=== PATIENT | male | born 1940 | race Caucasian/White ===

== ENCOUNTER → 2020-03-13 09:49 | Outpatient (CLI) | payer MEDICARE, OTHER, SELFPAY ==
[2020-03-14 02:01] LABS: COVID19 Sendout Not Detected (Not Detect)
== END ==
PROVIDERS: Family Provider Nurse Practitioner; Visit Provider Physician Assistant
DX: Z01.812 Encounter for preprocedural laboratory examination (principal)
CPT/HCPCS: 87635

== ENCOUNTER → 2020-04-21 09:40 | Outpatient (CLI) | payer MEDICARE, OTHER, SELFPAY ==
[2020-04-22 20:41] LABS: COVID19 Sendout Not Detected (Not Detect)
== END ==
PROVIDERS: Family Provider Nurse Practitioner; Visit Provider Physician Assistant
DX: Z11.59 Encounter for screening for other viral diseases (principal)
CPT/HCPCS: 87635

== ENCOUNTER 2020-04-24 07:20 | Day surgery (SDC) | payer MEDICARE, OTHER, SELFPAY ==
[2020-04-24 07:58] VITALS: BP 108/66; PULSE 66; RESP 18; TEMP 36.6; O2SAT 96; BMI 30.1
[2020-04-24] MEDS: CATARACT EYE COMPOUND (10 DROPS/SYRINGE) 3 DROPS EYE-OP (08:08)
[2020-04-24] MEDS: PROPARACAINE 0.5% OPHTH SOL 2 DROPS EYE-OP (08:08)
--- NOTE | 2020-04-24 09:05 | PM.PREOP ---
Pre-operative Note Interval Note History & Physical reviewed/Exam performed by Physician: Yes Changes to H&P: No
--- NOTE | 2020-04-24 09:05 | PM.OP.1 ---
Operative Date/Time/Diagnoses Pre-op diagnosis: Nuclear cataract right eye Procedure & Clinicians Procedure: Cataract Surgery Same procedure as scheduled: Yes Surgeon: Jesus Wilkinson Anesthesia Type: MAC +/- and Sedation Operative Notes Procedure in detail: Patient brought to the operating suite. Tetracaine drops placed in the right eye. Patient was prepped and draped in sterile manner. Wire lid speculum was placed in the eye. Betadine drops were placed on the eye. This was irrigated. Lidocaine jelly was placed on the eye. A paracentesis port was created with a side-port blade. 0.1 mL 1% preservative free lidocaine was injected into the anterior chamber. The anterior chamber was deepened with viscoelastic. 2.6 mm keratome was used to create a temporal clear corneal incision. Cystotome and Utrata forceps were used to create continuous tear capsulorrhexis. Balanced salt solution was used to hydro dissect the nucleus. The phacoemulsification handpiece was inserted and the nucleus was removed using the stop and chop technique. The irrigation aspiration handpiece was inserted and the remaining cortex was removed. Anterior chamber was deepened with viscoelastic. An Aivla ZCB00 intraocular lens with a power of 22.5 was injected into the capsular bag. Irrigation aspiration handpiece was inserted and the remaining viscoelastic was removed. Incision was hydrated with balanced salt solution and found to be leak free with pressure with Weck-Bouchra sponges. 0.1 mL Vigamox injected anterior chamber. 0.3 mL Kenalog 10 mg was injected subconjunctivally. Lid speculum was removed. The patient left the operating room in excellent condition. Complications: none Post-operative Condition: stable Disposition: same day surgery
--- NOTE | 2020-04-24 09:25 | SUR.OPER ---
Supine on eye stretcher, head on extension cradle secured with tape. Arms tucked at sides with blanket. Pillow under knees.
[2020-04-24] MEDS: CHONDROIDTIN/SOD HYALURONATE 1.05 ML SYRINGE INTRAOCULA (09:29)
[2020-04-24] MEDS: LIDOCAINE JELLY 2% 5 ML 1 APPLIC TOP (09:30)
[2020-04-24] MEDS: TRIAMCINOLONE 50 MG/5 ML VIAL INJ (09:31)
[2020-04-24] MEDS: PHENYLEPHRINE/LIDOCAINE VIAL (OR) 0.2 ML EYE-OP (09:31)
[2020-04-24] MEDS: TETRACAINE 0.5% OPHTH DROPS 4 ML 2 DROPS EYE-OP (09:31)
[2020-04-24] MEDS: MOXIFLOXACIN INJ 5 MG/ML VIAL EYE-OP (09:31)
[2020-04-24] MEDS: BALANCED SALT IRRIG SOLN NO.2 500 ML, EPINEPHrine 1 MG IRR (09:32)
[2020-04-24 09:39] VITALS: BP 110/66; PULSE 62; RESP 16; TEMP 36.6; O2SAT 99
== END 2020-04-24 10:03 | disposition home or self-care (01) ==
PROVIDERS: Family Provider Nurse Practitioner; PCP Student in an Organized Health Care Education/Training Program; Referring Provider Student in an Organized Health Care Education/Training Program; Visit Provider Ophthalmology
PROC: (CPT 66984; principal; 2020-04-24 09:15)
DX: H25.11 Age-related nuclear cataract, right eye (principal); E11.9 Type 2 diabetes mellitus without complications; D64.9 Anemia, unspecified; Z86.73 Personal history of transient ischemic attack (TIA), and cerebral infarction without residual deficits; Z79.84 Long term (current) use of oral hypoglycemic drugs; I10 Essential (primary) hypertension
CPT/HCPCS: 66984; J0171; J2250; J3301

== ENCOUNTER → 2020-05-05 10:48 | Outpatient (CLI) | payer MEDICARE, OTHER, SELFPAY ==
[2020-05-06 09:13] LABS: COVID19 Sendout Not Detected (Not Detect)
== END ==
PROVIDERS: Family Provider Nurse Practitioner; PCP Student in an Organized Health Care Education/Training Program; Visit Provider Physician Assistant
DX: Z11.59 Encounter for screening for other viral diseases (principal)
CPT/HCPCS: 87635

== ENCOUNTER 2020-05-08 07:12 | Day surgery (SDC) | payer MEDICARE, OTHER, SELFPAY ==
[2020-05-08] MEDS: PROPARACAINE 0.5% OPHTH SOL 2 DROPS EYE-OP (08:03)
[2020-05-08] MEDS: CATARACT EYE COMPOUND (10 DROPS/SYRINGE) 3 DROPS EYE-OP (08:12)
[2020-05-08 08:16] VITALS: BP 128/72; PULSE 71; RESP 18; TEMP 36.1; O2SAT 98; BMI 31.5
--- NOTE | 2020-05-08 08:57 | P.OP_ITS ---
Operative Date/Time/Diagnoses Pre-op diagnosis: Nuclear Cataract Left eye Post-op diagnosis: same Procedure & Clinicians Same procedure as scheduled: Yes Surgeon: Jesus Wilkinson Anesthesia Type: MAC +/- and Sedation Operative Notes Procedure in detail: Patient brought to the operating suite. Tetracaine drops placed in the left eye. Patient was prepped and draped in sterile manner. Wire lid speculum was placed in the eye. Betadine drops were placed on the eye. This was irrigated. Lidocaine jelly was placed on the eye. A paracentesis port was created with a side-port blade. 0.1 mL 1% preservative free lidocaine was injected into the anterior chamber. The anterior chamber was deepened with viscoelastic. 2.6 mm keratome was used to create a temporal clear corneal incision. Cystotome and Utrata forceps were used to create continuous tear capsulorrhexis. Balanced salt solution was used to hydro dissect the nucleus. The phacoemulsification handpiece was inserted and the nucleus was removed using the stop and chop technique. The irrigation aspiration handpiece was inserted and the remaining cortex was removed. Anterior chamber was deepened with viscoe lastic. An Avila ZCB00 intraocular lens with a power of 22.5 was injected into the capsular bag. Irrigation aspiration handpiece was inserted and the remaining viscoelastic was removed. Incision was hydrated with balanced salt solution and found to be leak free with pressure with Weck-Bouchra sponges. 0.1 mL Vigamox injected anterior chamber. 0.3 mL Kenalog 10 mg was injected subconjunctivally. Lid speculum was removed. The patient left the operating room in excellent condition. Complications: none Post-operative Condition: stable Disposition: same day surgery
--- NOTE | 2020-05-08 08:57 | PM.PREOP ---
Pre-operative Note Interval Note History & Physical reviewed/Exam performed by Physician: Yes Changes to H&P: No
[2020-05-08] MEDS: LIDOCAINE JELLY 2% 5 ML 1 APPLIC TOP (09:14)
[2020-05-08] MEDS: MOXIFLOXACIN INJ 5 MG/ML VIAL EYE-OP (09:15)
[2020-05-08] MEDS: PHENYLEPHRINE/LIDOCAINE VIAL (OR) 0.2 ML EYE-OP (09:15)
[2020-05-08] MEDS: CHONDROIDTIN/SOD HYALURONATE 1.05 ML SYRINGE INTRAOCULA (09:15)
[2020-05-08] MEDS: TRIAMCINOLONE 50 MG/5 ML VIAL INJ (09:15)
[2020-05-08] MEDS: TETRACAINE 0.5% OPHTH DROPS 4 ML 2 DROPS EYE-OP (09:16)
[2020-05-08] MEDS: BALANCED SALT IRRIG SOLN NO.2 500 ML, EPINEPHrine 1 MG IRR (09:16)
[2020-05-08 09:35] VITALS: BP 100/60; PULSE 66; RESP 16; TEMP 36.3; O2SAT 99
== END 2020-05-08 09:40 | disposition home or self-care (01) ==
PROVIDERS: Family Provider Nurse Practitioner; PCP Student in an Organized Health Care Education/Training Program; Referring Provider Student in an Organized Health Care Education/Training Program; Visit Provider Ophthalmology
PROC: (CPT 66984; principal; 2020-05-08 09:15)
DX: H25.12 Age-related nuclear cataract, left eye (principal); E11.9 Type 2 diabetes mellitus without complications; Z79.84 Long term (current) use of oral hypoglycemic drugs; D64.9 Anemia, unspecified; R25.1 Tremor, unspecified; Z86.73 Personal history of transient ischemic attack (TIA), and cerebral infarction without residual deficits
CPT/HCPCS: 66984; J0171; J2250; J3301

== ENCOUNTER 2021-01-07 12:20 | Emergency (ER) | payer MEDICARE, OTHER, SELFPAY ==
[2021-01-07] VITALS (12 sets, daily range): BP systolic 112–136; BP diastolic 57–111; PULSE 79–110; RESP 19–37; TEMP 36.8–38.4; O2SAT 92–94; BMI 31.5
--- NOTE | 2021-01-07 12:29 | DI.RAD.S_ITS ---
PROCEDURE: XR CHEST 1V INDICATIONS: suspected sepsis TECHNIQUE: One view of the chest was acquired. COMPARISON: None. FINDINGS: Surgical changes and devices: None. Lungs and pleura: There is fullness of the right hilum, probably due to the semi erect positioning rotated slightly to the right. Left axillary node dissection has been performed.. No pleural effusions or pneumothorax. Mediastinum: Mediastinal contours appear normal. Heart size is normal. The aorta is tortuous. Bones and chest wall: No suspicious bony lesions. Overlying soft tissues appear unremarkable. IMPRESSION: 1. No acute cardiopulmonary abnormality. 2. Fullness of the right hilum is probably due to positioning, however recommend attention on follow-up imaging. Dictated by: David Matthew M.D. on 01/07/2021 at 13:17 Approved by: David Matthew M.D. on 01/07/2021 at 13:19
[2021-01-07 13:21] LABS: Add Manual Diff / Slide Review NO; Basophils Absolute Auto 0 /uL (0-100); Basophils Percent Auto 0.2 % (0-2); Eosinophils Absolute Auto 0 /uL (0-450); Eosinophils Percent Auto 0.3 % (2-4); Hemoglobin 13.7 g/dL (13.5-17.5); Lymphocytes Absolute Auto 900 /uL (1100-4500); Lymphocytes Percent Auto 9.1 % (25-40); Mean Corpuscular HGB Conc 34.3 % (30-36); Mean Corpuscular Hemoglobin 30.7 PG (26-34); Mean Corpuscular Volume 89.5 fL (80-100); Monocytes Absolute Auto 900 /uL (0-900); Monocytes Percent Auto 9.5 % (3-14); Neutrophils Absolute Auto 7900 /uL (1500-7000); Neutrophils Percent Auto 80.9 % (50-75); Platelet Count 280 X10^3/uL (150-400); Red Blood Cell Count 4.47 X10^6/uL (4.5-5.9); White Blood Cell Count 9.7 X10^3/uL (4.5-11.0)
[2021-01-07 13:28] LABS: INR 1.2 (0.9-1.3); Prothrombin Time 14.1 SECONDS (10.1-12.7)
[2021-01-07] MEDS: SODIUM CHLORIDE 0.9% 1,000 ML 1000 ML IV (13:30)
[2021-01-07 13:31] LABS: PTT Partial Thromboplastin Tim 40 SECONDS (26.4-36.2)
[2021-01-07 13:37] LABS: Alanine Aminotransferase 102 IU/L (<50); Albumin 4.1 g/dL (3.5-5.0); Alkaline Phosphatase 86 U/L (38-126); Aspartate Aminotransferase 155 IU/L (17-59); BUN Creatinine Ratio 23.4 (6-22); Bilirubin Total 0.7 mg/dL (0.2-1.3); Blood Urea Nitrogen 44 mg/dL (9-20); Calcium 9.7 mg/dL (8.4-10.2); Carbon Dioxide 24 mmol/L (22-32); Chloride 102 mmol/L (98-107); Estimated Glomerular Filt Rate 34.5 mL/min (>60); Globulin 4.3 g/dL (1.7-4.1); Glucose 105 mg/dL (80-110); HEMOLYSIS < 15 (0-50); Lactate (Lactic Acid) 1.5 mmol/L (0.7-2.1); Lipase 267 U/L (23-300); Potassium 4.1 mmol/L (3.4-5.1); Sodium 138 mmol/L (137-145); Total Protein 8.4 g/dL (6.3-8.2)
[2021-01-07 13:47] LABS: COVID19 -Nasal RAPID Negative (Negative)
[2021-01-07 13:52] LABS: Procalcitonin 0.61 ng/mL (<0.5)
--- NOTE | 2021-01-07 13:57 | ED_ITS ---
HPI - General Adult General Chief complaint: Fever Stated complaint: sweating, chills, congestion, feeling very bad Time Seen by Provider: 01/07/21 13:10 Source: patient Mode of arrival: Ambulatory Limitations: no limitations History of Present Illness HPI narrative: Patient is an 80-year-old male here for evaluation of sweating and chills and body aches and malaise. Denies any abdominal pain. No cough but does have some congestion. No headache. No rashes. No urinary symptoms. No recent travel. No known sick contacts. Did take a 650 mg Tylenol earlier today. Related Data Home Medications Medication Instructions Recorded Confirmed amlodipine 10 mg PO DAILY 04/24/20 05/08/20 aspirin [Aspir-81] 162 mg PO DAILY 04/24/20 05/08/20 enalapril maleate 10 mg PO DAILY 04/24/20 05/08/20 febuxostat [Uloric] 40 mg PO DAILY 04/24/20 05/08/20 fenofibrate nanocrystallized 145 mg PO DAILY 04/24/20 05/08/20 metformin 500 mg PO DAILY 04/24/20 05/08/20 pravastatin 40 mg PO BID 04/24/20 05/08/20 Previous Rx's Medication Instructions Recorded azithromycin 500 mg PO DAILY 4 Days #4 tab 01/07/21 Allergies Allergy/AdvReac Type Severity Reaction Status Date / Time cephalexin Allergy Verified 01/07/21 12:28 iodine Allergy Verified 01/07/21 12:28 Review of Systems Constitutional Constitutional: Reports body ache(s), Reports chills, Reports fatigue, Reports fever(s) and Denies headache(s) Eyes Eyes: Denies change in vision ENT Ears, Nose, Mouth, and Throat: Denies dizziness, Denies headache(s), Reports sinus pressure and Denies sore throat Cardiovascular Cardiovascular: Denies chest pain and Denies dyspnea Respiratory Respiratory: Denies cough and Denies dyspnea Gastrointestinal Gastrointestinal: Denies abdominal pain, Denies nausea and Denies vomiting Genitourinary Genitourinary: Denies dysuria, Denies urinary hesitancy and Denies urinary urgency Genitourinary: Denies dysuria, Denies urinary hesitancy and Denies urinary urgency Musculoskeletal Musculoskeletal: Reports myalgias Integumentary/Breasts Skin/Breast: Denies lesions and Denies rash Neurologic Neurologic: Denies behavioral changes, Denies dizziness and Denies headache(s) Psychiatric Psychiatric: Denies behavioral changes Endocrine Endocrine: Reports fatigue Hematologic/Lymphatic On Anticoagulants: No Allergic/Immunologic Allergic/Immunologic: Denies urticaria Patient History Medical History Diabetes Essential tremor Social History household members: spouse Smoking Status: Never smoker alcohol intake: current Smoking Status: Never smoker alcohol intake frequency: 0-2 drinks per day Substance Use Type: does not use Exam Initial Vital Signs Initial Vital Signs: Vital Signs Temperature 98.2 F 01/07/21 12:25 Pulse Rate 104 H 01/07/21 12:25 Respiratory Rate 22 01/07/21 12:25 Blood Pressure 135/70 01/07/21 12:25 Pulse Oximetry 94 01/07/21 12:25 Const General: cooperative and comfortable Limitations: mental status not altered HENMT Head: normal to inspection and normocephalic Ears: hearing grossly normal bilaterally Nose: external nose normal Eyes General: appearance normal, both eyes and all related structures Resp Effort & Inspection: normal respiratory effort Auscultation: clear to auscultation bilaterally Cardio Rate: tachycardic Rhythm: regular rhythm GI Inspection: non-distended Palpation: No tender General: bladder normal to palpation Skin Lesions: no lesions Rashes: no rashes Neuro General: patient alert, patient awake and patient oriented x3 Cognition: normal cognition Speech: speech normal Extrem General: normal to inspection and capillary refill normal Psych Appearance: grossly normal and well kempt Scores GCS [place] coma scale eye opening: Spontaneous Xu coma scale verbal response: Orientated [place] coma scale motor response: Obey commands [place] coma scale total score: 15 Course Orders Ordered: ED Orders 01/07/21 12:29 XR chest 1V Stat RT Consult Eval and Treat Now 01/07/21 12:55 Complete Blood Count AUTO DIFF Stat Comprehensive Metabolic Panel Stat Lactate (Lactic Acid) Stat Lipase Stat Partial Thromboplastin Time Stat Procalcitonin Stat Prothrombin Time INR Stat 01/07/21 13:24 Blood Culture Stat 01/07/21 13:46 COVID19 -Nasal swab/Pre-Proc Stat 01/07/21 13:58 XR chest 2V Stat Discontinued Medications Acetaminophen (Acetaminophen 325 Mg Tablet) 650 mg PO NOW ONE Stop: 01/07/21 14:52 Last Admin: 01/07/21 15:01 Dose: 650 mg Documented by: NANDA Azithromycin (Azithromycin 250 Mg Tablet) 500 mg PO NOW ONE Stop: 01/07/21 16:03 Last Admin: 01/07/21 16:22 Dose: 500 mg Documented by: ARIA Sodium Chloride (Normal Saline 0.9%) 1,000 mls @ 1,000 mls/hr IV BOLUS ONE Stop: 01/07/21 13:28 Last Infusion: 01/07/21 15:00 Dose: 0 mls/hr Documented by: Admin: 01/07/21 13:30 Dose: 1,000 mls/hr Documented by: ARIA Vital Signs Vital signs: Vital Signs - 8 hr 01/07/21 12:25 01/07/21 13:26 01/07/21 13:33 Temperature 98.2 F 101.2 F H Pulse Rate 104 H 98 H Respiratory Rate 22 Blood Pressure 135/70 Pulse Oximetry 94 93 01/07/21 13:35 01/07/21 14:00 01/07/21 14:19 Temperature Pulse Rate 99 H 87 98 H Respiratory Rate 24 24 Blood Pressure 129/61 136/63 133/111 H Pulse Oximetry 92 94 93 01/07/21 14:30 01/07/21 14:31 01/07/21 15:00 Temperature 100.7 F H Pulse Rate 97 H 110 H 90 Respiratory Rate 37 H 24 22 Blood Pressure 112/79 132/73 Pulse Oximetry 94 94 93 01/07/21 15:01 01/07/21 16:07 01/07/21 16:31 Temperature 101 F H 99.3 F 99.9 F H Pulse Rate 79 Respiratory Rate 19 Blood Pressure 113/57 L Pulse Oximetry 94 Medical Decision Making Lab Data Lab results reviewed: Yes I reviewed the patient's lab results. Result diagrams: 01/07/21 12:55 01/07/21 12:55 Labs: Lab Results 01/07/21 01/07/21 01/07/21 Range/Units 12:55 12:55 12:55 WBC 9.7 (4.5-11.0) X10^3/uL RBC 4.47 L (4.5-5.9) X10^6/uL Hgb 13.7 (13.5-17.5) g/dL Hct 40.0 L (41-53) % MCV 89.5 (80-100) fL MCH 30.7 (26-34) PG MCHC 34.3 (30-36) % RDW 14.0 (11.6-14.8) % Plt Count 280 (150-400) X10^3/uL Neut % (Auto) 80.9 H (50-75) % Lymph % (Auto) 9.1 L (25-40) % [place] % (Auto) 9.5 (3-14) % Eos % (Auto) 0.3 L (2-4) % Baso % (Auto) 0.2 (0-2) % Neut # (Auto) 7900 H (8191-5996) /uL Lymph # (Auto) 900 L (7275-7557) /uL [place] # (Auto) 900 (0-900) /uL Eos # (Auto) 0 (0-450) /uL Baso # (Auto) 0 (0-100) /uL PT 14.1 H (10.1-12.7) SECONDS INR 1.2 (0.9-1.3) APTT 40 H (26.4-36.2) SECONDS Sodium 138 (137-145) mmol/L Potassium 4.1 (3.4-5.1) mmol/L Chloride 102 (98-107) mmol/L Carbon Dioxide 24 (22-32) mmol/L BUN 44 H (9-20) mg/dL Creatinine 1.88 H (0.66-1.25) mg/dL Estimated GFR 34.5 L (>60) mL/min BUN/Creatinine Ratio 23.4 H (6-22) Glucose 105 (80-110) mg/dL Lactate (0.7-2.1) mmol/L Calcium 9.7 (8.4-10.2) mg/dL Total Bilirubin 0.7 (0.2-1.3) mg/dL AST 155 H (17-59) IU/L ALT 102 H (<50) IU/L Alkaline Phosphatase 86 (38-126) U/L Total Protein 8.4 H (6.3-8.2) g/dL Albumin 4.1 (3.5-5.0) g/dL Globulin 4.3 H (1.7-4.1) g/dL Albumin/Globulin Ratio 1.0 (1.0-2.8) Lipase 267 (23-300) U/L Procalcitonin 0.61 H (<0.5) ng/mL SARS-CoV-2 (PCR) (Negative) 01/07/21 01/07/21 Range/Units 12:55 13:46 WBC (4.5-11.0) X10^3/uL RBC (4.5-5.9) X10^6/uL Hgb (13.5-17.5) g/dL Hct (41-53) % MCV (80-100) fL MCH (26-34) PG MCHC (30-36) % RDW (11.6-14.8) % Plt Count (150-400) X10^3/uL Neut % (Auto) (50-75) % Lymph % (Auto) (25-40) % [place] % (Auto) (3-14) % Eos % (Auto) (2-4) % Baso % (Auto) (0-2) % Neut # (Auto) (9687-2323) /uL Lymph # (Auto) (7080-7276) /uL [place] # (Auto) (0-900) /uL Eos # (Auto) (0-450) /uL Baso # (Auto) (0-100) /uL PT (10.1-12.7) SECONDS INR (0.9-1.3) APTT (26.4-36.2) SECONDS Sodium (137-145) mmol/L Potassium (3.4-5.1) mmol/L Chloride (98-107) mmol/L Carbon Dioxide (22-32) mmol/L BUN (9-20) mg/dL Creatinine (0.66-1.25) mg/dL Estimated GFR (>60) mL/min BUN/Creatinine Ratio (6-22) Glucose (80-110) mg/dL Lactate 1.5 (0.7-2.1) mmol/L Calcium (8.4-10.2) mg/dL Total Bilirubin (0.2-1.3) mg/dL AST (17-59) IU/L ALT (<50) IU/L Alkaline Phosphatase (38-126) U/L Total Protein (6.3-8.2) g/dL Albumin (3.5-5.0) g/dL Globulin (1.7-4.1) g/dL Albumin/Globulin Ratio (1.0-2.8) Lipase (23-300) U/L Procalcitonin (<0.5) ng/mL SARS-CoV-2 (PCR) Negative (Negative) Urine Dip Bedside Urine Glucose Negative Bedside Urine Bilirubin - Negative Bedside Urine Ketone - Negative Urine Specific [place] 1.030 Bedside Urine Occult Blood - Negative Bedside Urine pH 6 Bedside Urine Protein - Negative Bedside Urine Urobilinogen +/- 1mg Bedside Urine Nitrite - Negative Bedside Urine Leukocytes - Negative Esterase Point of care testing: Urine Dip Bedside Urine Glucose Negative Bedside Urine Bilirubin - Negative Bedside Urine Ketone - Negative Urine Specific [place] 1.030 Bedside Urine Occult Blood - Negative Bedside Urine pH 6 Bedside Urine Protein - Negative Bedside Urine Urobilinogen +/- 1mg Bedside Urine Nitrite - Negative Bedside Urine Leukocytes - Negative Esterase Imaging Data Chest x-ray: Radiologist's Impression: [address] [id number] ReportSigned Patient: Florentino Armenta MMR#: [id number]: 8Acct:[id number]/Sex: 80 / MDate of Service: 01/07/21Loc: EDAccession Number: [id number] Procedure: XR chest 1V Ordering Provider: Timothy Canales D.O. PROCEDURE: XR CHEST 1V INDICATIONS: suspected sepsis TECHNIQUE: One view of the chest was acquired. COMPARISON: None. FINDINGS: Surgical changes and devices: None. Lungs and pleura: There is fullness of the right hilum, probably due to the semi erect positioning rotated slightly to the right. Left axillary node dissection has been performed.. No pleural effusions or pneumothorax. Mediastinum: Mediastinal contours appear normal. Heart size is normal. The aorta is tortuous. Bones and chest wall: No suspicious bony lesions. Overlying soft tissues appear unremarkable. IMPRESSION: 1. No acute cardiopulmonary abnormality. 2. Fullness of the right hilum is probably due to positioning, however recommend attention on follow-up imaging. Dictated by: David Matthew M.D. on 01/07/2021 at 13:17 Approved by: David Matthew M.D. on 01/07/2021 at 13:19 MDM Narrative Medical decision making narrative: Patient is well-appearing. Was febrile and tachycardic upon arrival but as a normal white blood cell count and normal lactate. His procalcitonin is elevated. Chest x-ray was repeated to definitively evaluate for pneumonia and there is concern for lower lobe pneumonia. I suspect that this is the cause of his symptoms. He has not been hospitalized recently. Not a resident of a long-term care facility. Was given azithromycin here in the emergency department he tolerated without problems. Will give her prescription for the remainder of the course. Feel discharge home was appropriate for this patient given his presentation. He was given return precautions and follow-up instructions. He expressed understanding and agreement. Discharge Plan Departure Patient Disposition: Home Clinical Impression: Community acquired pneumonia Instructions: DI for Pneumonia -- Adult Activity Restrictions/Additional Instructions: A prescription for antibiotics as electronically transmitted to [facility]. Please start taking them tomorrow as directed. Return to the emergency depa rtment for any new or worsening symptoms. Contact your primary provider for follow-up. Prescriptions: New azithromycin 500 mg tablet 500 mg PO DAILY 4 Days Qty: 4 RF: 0 No Action metformin 500 mg tablet 500 mg PO DAILY RF: 0 enalapril maleate 10 mg tablet 10 mg PO DAILY RF: 0 aspirin [Aspir-81] 81 mg Tablet,Delayed Release (Dr/Ec) 162 mg PO DAILY RF: 0 pravastatin 80 mg tablet 40 mg PO BID RF: 0 amlodipine 10 mg tablet 10 mg PO DAILY RF: 0 fenofibrate nanocrystallized 145 mg tablet 145 mg PO DAILY RF: 0 febuxostat [Uloric] 40 mg tablet 40 mg PO DAILY RF: 0 Referrals: Lisa Goodson MD [Primary Care Provider] -
--- NOTE | 2021-01-07 13:58 | DI.RAD.S_ITS ---
PROCEDURE: XR CHEST 2V INDICATIONS: Re-evaluate for pneumonia TECHNIQUE: 2 views of the chest were acquired. COMPARISON: [facility], CR, XR CHEST 1V, 01/07/2021, 12:53. FINDINGS: Surgical changes and devices: Surgical clips are again seen in left axilla. Lungs and pleura: Ill-defined airspace opacity in right infrahilar region is again seen suggestive of right lower lobe infiltrate. Left lung is clear. No pleural effusions or pneumothorax. Mediastinum: Mediastinal contours are normal. Heart size is normal. Bones and chest wall: No suspicious bony abnormalities. Soft tissues appear unremarkable. IMPRESSION: Persistent right lower lobe infiltrate. Dictated by: Evan Howe M.D. on 01/07/2021 at 15:02 Approved by: Evan Howe M.D. on 01/07/2021 at 15:04
[2021-01-07] MEDS: ACETAMINOPHEN 325 MG TABLET 650 MG PO (15:01)
[2021-01-07] MEDS: AZITHROMYCIN 250 MG TABLET 500 MG PO (16:22)
== END 2021-01-07 17:18 | disposition home or self-care (01) ==
PROVIDERS: Emergency Provider Emergency Medicine; Family Provider Nurse Practitioner; PCP Student in an Organized Health Care Education/Training Program
DX: J18.9 Pneumonia, unspecified organism (principal); R00.0 Tachycardia, unspecified; Z20.822 Contact with and (suspected) exposure to COVID-19
CPT/HCPCS: 36415; 71045; 71046; 80053; 81003; 83605; 83690; 84145; 85025; 85610; 85730; 87040; 87635; 96360; 99284; C9803

== ENCOUNTER → 2021-01-23 10:37 | Outpatient (CLI) | payer MEDICARE, OTHER, SELFPAY ==
--- NOTE | 2021-01-23 | DI.RAD.S_ITS ---
PROCEDURE: XR CHEST 2V INDICATIONS: Pneumonia followup, unspecified organism TECHNIQUE: 2 views of the chest were acquired. COMPARISON: [facility], CR, XR CHEST 2V, 01/07/2021, 14:02. FINDINGS: Surgical changes and devices: Surgical clips noted in the left axilla. Lungs and pleura: There is and persistent but improving right lower lobe pulmonary infiltrate again noted. Left lung is clear. Mediastinum: Mediastinal contours are normal. Heart size is normal. Bones and chest wall: No suspicious bony abnormalities. Soft tissues appear unremarkable. IMPRESSION: Persistent but improving right lower lobe pulmonary infiltrate Dictated by: Torey Hdz M.D. on 01/23/2021 at 10:43 Approved by: Torey Hdz M.D. on 01/23/2021 at 10:44
== END ==
PROVIDERS: Family Provider Nurse Practitioner; PCP Student in an Organized Health Care Education/Training Program; Referring Provider Student in an Organized Health Care Education/Training Program; Visit Provider Student in an Organized Health Care Education/Training Program
DX: J18.9 Pneumonia, unspecified organism (principal)
CPT/HCPCS: 71046

== ENCOUNTER → 2021-03-06 13:09 | Outpatient (CLI) | payer MEDICARE, OTHER, SELFPAY ==
--- NOTE | 2021-03-06 | DI.MRI.S_ITS ---
PROCEDURE: MR LUMBAR SPINE WO CON INDICATIONS: Radiculopathy, lumbar region TECHNIQUE: Noncontrast sagittal T1 spin echo and T2 fast echo, sagittal STIR, axial T1 and T2 fast spin echo through the lumbar spine. In cases with scoliosis, additional coronal T2 fast spin echo may be performed. COMPARISON: None. FINDINGS: Image quality: Excellent. Alignment and Curvature: There is normal bony alignment. Bone Marrow: Marrow is of normal overall signal. No acute vertebral body compression fractures. Spinal Cord: Conus medullaris terminates at the L1 level. Visualized cord demonstrates normal signal and size. Paraspinous Soft Tissues: No paravertebral masses. T12-L1: Mild disc space narrowing and circumferential disc bulge present without central or foraminal stenosis. L1-L2: Moderate disc space narrowing. There is circumferential disc bulge present without central stenosis. Mild bilateral foraminal stenosis present. L2-L3: Mild disc space narrowing and circumferential disc bulge combines with hypertrophic facet joints. No central stenosis. Moderate bilateral foraminal stenosis noted. L3-L4: Disc height is preserved. There is a circumferential disc bulge and hypertrophic facet joints present. No central stenosis. Mild left foraminal and no right foraminal stenosis. L4-L5: Moderate disc height loss and circumferential disc bulge combines with hypertrophic facet joints and epidural fat to result in moderate central stenosis narrowing the AP diameter of the thecal sac to 7 mm. There is effacement of both lateral recesses. No foraminal stenosis present. L5-S1: Moderate disc height loss and circumferential disc bulge combined with hypertrophic facet joints. There is a high-intensity zone in the posterior annulus. Mild central stenosis present. No foraminal stenosis. IMPRESSION: Multilevel degenerative disc disease and arthropathy results in moderate central stenosis at L4-5 and varying degrees of foraminal stenosis as above. Dictated by: Torey Hdz M.D. on 03/06/2021 at 15:28 Approved by: Torey Hdz M.D. on 03/06/2021 at 16:33
== END ==
PROVIDERS: Family Provider Nurse Practitioner; PCP Student in an Organized Health Care Education/Training Program; Referring Provider Physical Medicine & Rehabilitation Pain Medicine; Visit Provider Physical Medicine & Rehabilitation Pain Medicine
DX: M51.16 Intervertebral disc disorders with radiculopathy, lumbar region (principal); M51.17 Intervertebral disc disorders with radiculopathy, lumbosacral region; M47.26 Other spondylosis with radiculopathy, lumbar region; M47.27 Other spondylosis with radiculopathy, lumbosacral region; M48.061 Spinal stenosis, lumbar region without neurogenic claudication; M48.07 Spinal stenosis, lumbosacral region
CPT/HCPCS: 72148

== ENCOUNTER → 2023-03-13 11:58 | Outpatient (CLI) | payer MEDICARE, OTHER, SELFPAY ==
[2023-03-13 14:21] LABS: Alanine Aminotransferase 43 IU/L (<50); Albumin 4.2 g/dL (3.5-5.0); Albumin Globulin Ratio 1.4 (1.0-2.8); Alkaline Phosphatase 60 U/L (38-126); Aspartate Aminotransferase 39 IU/L (17-59); Bilirubin Total 0.6 mg/dL (0.2-1.3); Bilirubin Unconjugated 0.3 mg/dL (0.0-1.1); Globulin 2.9 g/dL (1.7-4.1); HEMOLYSIS < 15 (0-50); Lipase 193 U/L (23-300); Total Protein 7.1 g/dL (6.3-8.2)
== END ==
PROVIDERS: Family Provider Nurse Practitioner; PCP Family Medicine; Referring Provider Family Medicine; Visit Provider Family Medicine
DX: R74.01 Elevation of levels of liver transaminase levels (principal); R10.13 Epigastric pain
CPT/HCPCS: 36415; 80076; 83690

== ENCOUNTER → 2023-09-01 | Outpatient (CLI) | payer MEDICARE, OTHER, SELFPAY ==
--- NOTE | 2023-09-03 21:48 | DI.NM.S_ITS ---
DATE OF SERVICE: 09/01/2023 PROCEDURE: Pharmacological perfusion study. INDICATIONS: Coronary artery calcification with evidence of peripheral artery disease. Perfusion study is being done for CAD risk stratification. RADIOPHARMACEUTICAL: 26.4 mCi technetium-99m Myoview IV was injected at stress and 27.2 mCi technetium-99m Myoview IV was injected at rest. CARDIAC STRESS: Patient underwent IV Lexiscan study under the supervision of an attending staff using standard IV Lexiscan as per protocol. Patient remained hemodynamically stable. Baseline blood pressure 120/70. Baseline rhythm sinus with some artifacts with diffuse low-voltage complexes. During stress, no convincing ischemic changes seen. No significant arrhythmias seen. The patient had mild flushing without any significant symptoms. RAW DATA: There is increased subdiaphragmatic activity. Diaphragmatic shadow seen. The patient's weight is 240 pounds. GATED STUDY: Resting LV ejection fraction 71% and stress LV ejection fraction 85% without any obvious wall motion abnormalities. Resting end- diastolic volume 84 mL. TID ratio 1.02, which is within normal limits. Lung/heart ratio 0.7, which is within normal limits. MYOCARDIAL PERFUSION SCAN: Stress supine, resting supine and stress prone images were compared to each other. Stress supine and resting supine images revealed moderate size, mild to moderately decreased perfusion of inferolateral wall which completely resolved during stress prone images, suggestive of tissue attenuation artifact. No convincing ischemia or infarction pattern seen. CONCLUSION: This is a normal myocardial perfusion study with evidence of diaphragmatic tissue attenuation artifact, which resolved during stress prone images. Preserved left ventricular function. Overall, low- risk myocardial perfusion scan. 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
== END ==
PROVIDERS: Family Provider Nurse Practitioner; PCP Family Medicine; Referring Provider Internal Medicine Cardiovascular Disease; Visit Provider Internal Medicine Cardiovascular Disease
DX: I25.10 Atherosclerotic heart disease of native coronary artery without angina pectoris (principal); I25.84 Coronary atherosclerosis due to calcified coronary lesion; I73.9 Peripheral vascular disease, unspecified
CPT/HCPCS: 78452; 93017; A9502; J2785